=== PATIENT | female | born 1975 ===

== ENCOUNTER 2025-05-07 12:42 | Emergency (ER) | payer MEDICAID, SELFPAY ==
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
--- NOTE | ~2025-05-07 | XR_ITS ---
EXAMINATION: XR TIBIA AND FIBULA, RIGHT CLINICAL INFORMATION: pain, skin infection COMPARISON: None available. TECHNIQUE: AP and lateral views of the right tibia and fibula were obtained. FINDINGS: No periosteal bone reaction. No subcutaneous emphysema. No metallic or radiopaque foreign body. No lytic or blastic lesions. XR/XR tibia fibula RT 2V IMPRESSION: No osteomyelitis. No subcutaneous emphysema. Cellulitis/phlegmon cannot be excluded. Electronically signed by: Elijah Mccoy MD 05/07/2025 02:30 PM EDT
[2025-05-07 13:35] VITALS: BP 119/66; PULSE 82; RESP 18; TEMP 36.7; O2SAT 96; BMI 46.6
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
== END 2025-05-07 15:49 | disposition left against medical advice (07) ==
PROVIDERS: Emergency Provider Emergency Medicine
DX: M79.604 Pain in right leg (principal); R23.8 Other skin changes; S00.83XA Contusion of other part of head, initial encounter; Y09 Assault by unspecified means; Y93.9 Activity, unspecified; Y92.008 Other place in unspecified non-institutional (private) residence as the place of occurrence of the external cause; R51.9 Headache, unspecified; R60.0 Localized edema
CPT/HCPCS: 73590; 99281; 99283

== ENCOUNTER → 2025-05-07 14:06 | Outpatient (BNV) | payer MEDICAID, SELFPAY | PROVIDERS: Visit Provider Radiology Diagnostic Radiology | DX: M79.661 Pain in right lower leg (principal) | CPT/HCPCS: 73590 ==